=== PATIENT | female | born 1985 | race Caucasian/White ===

== ENCOUNTER 2022-07-28 09:20 | Day surgery (SDC) | payer OTHER, SELFPAY ==
[2022-07-21 10:32] VITALS: BMI 28.8
--- NOTE | 2022-07-27 12:16 | P.CONAN_ITS ---
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 ASA 81 daily. PMFSH Past Medical History Medical History Anxiety Cerebral microvascular disease Migraine headache PTSD (post-traumatic stress disorder) Vertebral artery dissection Surgical History Surgical History Hx of breast augmentation Hx of eye surgery Social History Social History Are you a primary child care attendant to a significant other at home: No Do you presently have visiting nurse or other home services: No Patient Tobacco Use Status: Never used Tobacco Use of substances other than those prescribed or required for medical reasons: No Have you been hit, kicked, punched, or otherwise hurt by someone within the past year? If so, by whom?: No Are you DNR?: No Advance Directives Information Provided: Yes (brochure mailed) Advance Directives on File: No Recently lost weight without trying: No Eating poorly because of decreased appetite: No Nutrition Risks: No Nutritional Risk Patient : No FDLMP: N/A-has IUD : No Poor oral hygiene: No Meds Allergies Allergy/AdvReac Type Severity Reaction Status Date / Time No Known Allergies Allergy Verified 07/28/22 09:27 Home Medications Medication Instructions Recorded Confirmed Last Taken Type aspirin 81 mg tablet,delayed 81 mg PO DAILY 07/21/22 07/28/22 07/26/22 History release lorazepam 1 mg tablet (Ativan) 1 mg PO DAILY PRN Anxiety 07/21/22 07/28/22 07/28/22 09:30 History 0.5 mg Exam Exam Date and Time: July 27, 2022 1216 Height,Weight and Vital Signs: Height 5 ft 8 in Weight 86.183 kg Pertinent Lab Results Pertinent Lab Results: 02/2022 CBC and BMP from outside facility all WNL Narrative Narrative: EKG 06/2022 NSR @ 83 Assessment and Plan Assessment Anesthesia Assessment: Chart Reviewed Documented by User: Gillian Gamez MD 07/28/22 09:51 [facility] Past Medical History Medical History Anxiety Cerebral microvascular disease Migraine headache PTSD (post-traumatic stress disorder) Vertebral artery dissection Surgical History Surgical History Hx of breast augmentation Hx of eye surgery History of Problems with Anesthesia: No Social History Social History Are you a primary child care attendant to a significant other at home: No Do you presently have visiting nurse or other home services: No Patient Tobacco Use Status: Never used Tobacco Use of substances other than those prescribed or required for medical reasons: No Have you been hit, kicked, punched, or otherwise hurt by someone within the past year? If so, by whom?: No Are you DNR?: No Advance Directives Information Provided: Yes (brochure mailed) Advance Directives on File: No Recently lost weight without trying: No Eating poorly because of decreased appetite: No Nutrition Risks: No Nutritional Risk Patient : No FDLMP: N/A-has IUD : No Poor oral hygiene: No Meds Allergies Allergy/AdvReac Type Severity Reaction Status Date / Time No Known Allergies Allergy Verified 07/28/22 09:27 Home Medications Medication Instructions Recorded Confirmed Last Taken Type aspirin 81 mg tablet,delayed 81 mg PO DAILY 07/21/22 07/28/22 07/26/22 History release lorazepam 1 mg tablet (Ativan) 1 mg PO DAILY PRN Anxiety 07/21/22 07/28/22 07/28/22 09:30 History 0.5 mg Exam Airway Mallampati Class: III TM Dist: >3cm Neck ROM: Full Loose/Missing/Broken Teeth: No Heart: RRR Lungs: CTA Assessment and Plan Assessment Anesthesia Assessment: Anesthesia Plan Discussed Final Anesthetic Review History of Problems with Anesthesia: No NPO: Yes ASA Class: II Final Preanesthetic Review: Meds/Allgs Chart Reviewed, Consent Obtained/Reviewed and Anes Risks/Benef Reviewed Patient Risk: Low Procedure Risk: Low Anesthetic Plan Anesthetic Plan: GA Disposition: Standard PACU
[2022-07-28] VITALS (13 sets, daily range): BP systolic 103–128; BP diastolic 48–88; PULSE 77–105; RESP 16–20; TEMP 36.1–37.3; O2SAT 95–100
[2022-07-28 09:37] LABS: UPreg QC Valid YES; Urine Pregnancy NEGATIVE (NEGATIVE)
[2022-07-28] MEDS: Lactated Ringers 1,000 ML 100 ML IVCONT (09:51)
[2022-07-28] MEDS: Tetracaine HCl/PF 0.5% Oph Sol 4 ML DROPS 1 DROP EYE-BOTH ×2 (11:28→12:33)
[2022-07-28] MEDS: oxyCODONE HCl Immed Release 5 MG TABLET PO (11:28)
[2022-07-28] MEDS: ondansetron HCL 4 MG/2 ML VIAL IVPUSH (12:33)
--- NOTE | 2022-07-28 13:39 | HO.OPHTHAL ---
Ophthalmology Operative Note Date of Service: 07/28/22 Narrative: Diagnosis exotropia. Procedure of bilateral medial rectus resections of 6 [address] Funez. Anesthesia general. Complications none. The patient was brought to the operating room placed under general anesthesia. the eyes were prepped and draped in the usual sterile ophthalmic fashion. A lid speculum was placed in the right eye and a pretty me was created around the medial rectus muscle. Scar tissue was carefully dissected free from the insertion and the muscle was found to be only partially inserted to the original insertion and mostly inserted to the overlying tenons. The muscle was carefully grasped with a Michael muscle clamp after being dissected free and a 6 mm resection was marked off with cautery. Because the muscle was very thin and tenuous the resection point was secured with a single Vicryl suture bunching the muscle together at 1 point and the distal muscle was resected. The muscle was then reattached to a position approximately 5 mm behind the surgical limbus. Conjunctiva was closed with interrupted Vicryl sutures. The lid speculum was then placed in the left eye and an peritomy made around the medial rectus muscle. Extensive scar tissue was dissected free and the muscle secured at its insertion with a Michael muscle clamp. A 7 mm resection was marked off with cautery and secured with a double-armed Vicryl suture. The distal muscle was resected and the resection point drawn forward to the original insertion. Conjunctiva was closed with interrupted Vicryl sutures. The patient was then awoken from general anesthesia and discharged to postop recovery in good condition.
== END 2022-07-28 15:39 | disposition home or self-care (01) ==
PROVIDERS: Nurse Practitioner; PCP Internal Medicine; Visit Provider Ophthalmology
PROC: (CPT 67311; principal; 2022-07-28 10:50)
DX: H53.2 Diplopia (principal); H50.10 Unspecified exotropia
CPT/HCPCS: 67311; 67335; 81025; J0131; J1100; J1885; J2405; J2550; J3010